=== PATIENT | female | born 2000 | race Caucasian/White ===

== ENCOUNTER 2021-10-08 09:33 | Emergency (ER) | payer MEDICAID, SELFPAY ==
--- NOTE | ~2021-10-08 | CT_ITS ---
EXAMINATION: CT HEAD WITHOUT CONTRAST CLINICAL INFORMATION: Head injury, persistent dizziness, headache COMPARISON: None TECHNIQUE: Contiguous axial imaging was performed from the skull base to vertex without intravenous administration of contrast. This CT examination was performed using dose optimization techniques as appropriate, variously including the following: *Automated exposure control *Adjustment of mA and/or kV according to patient size (this includes techniques or standardized protocols for targeted exams where dose is matched to indication/reason for exam; i.e. extremities or head) *Use of iterative reconstruction technique DLP: 615 mGy-cm FINDINGS: There is no evidence of acute intracranial hemorrhage or territorial infarction. No abnormal mass effect or midline shift is seen. Han to white matter differentiation is well preserved. No extra-axial fluid collections are identified. The ventricles are normal in size. There is no abnormal attenuation within the brain parenchyma. The osseous structures and soft tissues are normal. The mastoid air cells and visualized portions of the paranasal sinuses are well aerated. CT/CT head/brain wo con IMPRESSION: No CT evidence of acute intracranial hemorrhage or edematous territorial infarction.
[2021-10-08 09:49] VITALS: BP 124/71; PULSE 84; RESP 18; TEMP 36.8; O2SAT 99; BMI 23.0
[2021-10-08 16:26] VITALS: BP 122/75; PULSE 80; RESP 16; O2SAT 100
--- NOTE | 2021-10-08 16:33 | ECG_ITS ---
Test Reason : SYNCOPE Blood Pressure : / mmHG Vent. Rate : 077 BPM Atrial Rate : 077 BPM P-R Int : 152 ms QRS Dur : 078 ms QT Int : 336 ms P-R-T Axes : -23 054 038 degrees QTc Int : 380 ms Normal sinus rhythm Normal ECG When compared with ECG of 25-MAY-2019 16:20, No significant change was found Referred By: Eva Boucher Electronically Signed By:KEISHA BASHIR
--- NOTE | 2021-10-08 16:34 | ED.SYNCOPE ---
HPI - Syncope General Chief Complaint: Syncope <Eva Darbyyi Boucher CNP - Last Filed: 10/09/21 00:57> Stated Complaint: head blood work <Eva Boucher CNP - Last Filed: 10/09/21 00:57> Time Seen by Provider: 10/08/21 16:24 <Eva Boucher CNP - Last Filed: 10/09/21 00:57> Source: patient <Eva Pastor DARRELL Boucher - Last Filed: 10/09/21 00:57> Mode of arrival: ambulatory <Eva Burnsyi Boucher CNP - Last Filed: 10/09/21 00:57> Limitations: no limitations <Eva Burnsyi Boucher CNP - Last Filed: 10/09/21 00:57> History of Present Illness HPI narrative: Patient presents to the emergency department for evaluation after syncopal episode occurring 6 days ago while in the shower. She reports that she was found by a friend. It is unclear exactly how long she was down. She did not seek evaluation after this occurred. She reports that since this episode she has been experiencing intermittent left posterior headache, that typically last for a few minutes at a time, and self resolves. She states that it is occurring frequently during the day and is associated with dizziness and blurred vision. She reports the headache to be worse at night making it difficult for her to sleep. She contacted her primary care provider who advised her to come to the emergency department for further evaluation. She does report a remote history of syncopal episodes in the past, it is unclear exactly when this was, she states that ?my heart was checked and everything was fine?. Denies any additional syncopal episodes or falls/head injury, neck pain, nausea, vomiting, abdominal pain, chest pain, palpitations, shortness of breath, difficulty breathing. <Eva Boucher CNP - Last Filed: 10/09/21 00:57> MD complaint: loss of consciousness <Eva Boucher CNP - Last Filed: 10/09/21 00:57> Onset (ago): day(s) <DARRELL Cruz Last Filed: 10/09/21 00:57> Related Data Allergies/Adverse Reactions: Allergies Allergy/AdvReac Type Severity Reaction Status Date / Time No Known Allergies Allergy Unverified 02/08/20 18:23 <Eva Boucher CNP - Last Filed: 10/09/21 00:57> Review of Systems Review of Systems: Constitutional: No weight loss. No fever. No chills. No weakness. No fatigue. Eye: No swelling. No redness. ENT: No sore throat. No rhinorrhea. No nasal congestion. No sore throat. No difficulty swallowing. Skin: No rash. No itching. Cardiovascular: No chest pain. No chest pressure. No palpitations. No pedal edema. Respiratory: No shortness of breath. No cough. No sputum production. Gastrointestinal: No nausea. No vomiting. No diarrhea. No abdominal pain. Genitourinary: No burning micturition. No urinary frequency. No incontinence. Neurologic: Positive headache. Positive dizziness. Positive syncope. No unilateral weakness. No ataxia. No numbness. No tingling. No change in bowel or bladder control. Musculoskeletal: No muscle pain. No back pain. No joint pain. No stiffness. Hematologic: No bleeding. No bruising. Lymphatics: No enlarged lymph nodes. Endocrine: No polyuria. No polydipsia. <Eva Boucher CNP - Last Filed: 10/09/21 00:57> Yes all other systems are reviewed and are negative <Eva Boucher CNP - Last Filed: 10/09/21 00:57> PMF Past Medical History Attestation statement: The following information was validated with the patient. <Eva Boucher CNP - Last Filed: 10/09/21 00:57> Source: old records reviewed <Eva Boucher CNP - Last Filed: 10/09/21 00:57> Social History Social History: Social History Advance Directives: No Advance Directives Information Provided: No <Eva Boucher CNP - Last Filed: 10/09/21 00:57> Physical Exam Vital Signs: Vital Signs: Last Vital Signs Temp 98.3 F 10/08/21 09:49 Pulse 75 10/08/21 18:58 Resp 16 10/08/21 18:58 BP 123/71 10/08/21 18:58 Pulse Ox 100 10/08/21 18:58 BMI result Body Mass Index 23.0 Vital signs have been reviewed as normal and appeared to be correct. Blood pressure normal.? Heart rate normal.? Respiration rate normal. Temperature normal.? Oxygen saturation normal. <Eva Boucher CNP - Last Filed: 10/09/21 00:57> Appearance: Alert.?Oriented to person, place and time. No acute distress.?Normal affect. Eyes: Pupils equal, round and reactive to light.? EOMI. No nystagmus. ENT: Pharynx normal.??TM normal bilaterally Neck: Normal inspection.? Neck supple.??No midline cervical spine tenderness, step-offs, deformities CVS: Heart sounds normal. Normal heart rate and rhythm.? Pulses normal.?? Respiratory: No respiratory distress.? Lung sounds clear to auscultation bilaterally?? Abdomen: Soft and non-tender. ?? Skin: Skin warm and dry.? Normal skin color.? Extremities: No lower extremity edema.? Neuro: Moves all extremities spontaneously. Sensation intact bilaterally. CN II-XII intact. No focal neuro deficits. Ambulates with normal steady gait. <Eva Boucher CNP - Last Filed: 10/09/21 00:57> Course Course Course Narrative: Patient is a 20-year-old female no significant past medical history presenting to emergency department for intermittent headaches and dizziness since the syncopal episode occurring 6 days ago. At that time she was in the shower when she syncopized, denies a shower being excessively hot. Before this syncopal episode she reports feeling otherwise well. Since event dizziness has been sudden in onset and very episodic, lasting only minutes at a time. No neurological deficits. No nystagmus. Ambulatory with steady gait. Will obtain CBC, CMP, urinalysis, and CT of the head to exclude ICH/SAH. <Eva Boucher CNP - Last Filed: 10/09/21 00:57> Reevaluation(s) Reevaluation #1: CBC and CMP are overall unremarkable. Head CT is unremarkable for acute findings. Urinalysis reveals 2+ leuk esterase, but not currently experiencing any urinary symptoms, at this time would not treat with antibiotics, discussed this with patient who agrees. Patient advised to use Tylenol or ibuprofen as needed for headaches, advised to follow-up with primary care provider should she continue to experience headaches or brief intermittent dizziness. Discussed reasons return back to the emergency department. Questions were answered for patient discharged home in stable condition. <Eva BoucherDARRELL - Last Filed: 10/09/21 00:57> Time: 18:30 <Eva LunaDARRELL zuñiga - Last Filed: 10/09/21 00:57> MDM - Syncope Medical Records Attestation: I reviewed the patient's medical records. <Eva LunaDARRELL zuñiga - Last Filed: 10/09/21 00:57> Lab Data Attestation: I reviewed the patient's lab results. <Eva Pastor DARRELL Boucher - Last Filed: 10/09/21 00:57> Result diagrams: : 10/08/21 17:05 10/08/21 17:05 <Eva Pastor DARRELL Boucher - Last Filed: 10/09/21 00:57> Labs: Lab Results 10/08/21 10/08/21 10/08/21 Range/Units 17:05 17:05 17:05 WBC 6.7 (4.8-10.8) X10*3/uL RBC 4.54 (4.20-5.50) X10*6/uL Hgb 13.5 (12.0-16.0) g/dl Hct 40.7 (37.0-47.0) % MCV 89.6 (80.0-98.0) fL MCH 29.7 (27.0-33.0) pg MCHC 33.2 (31.0-35.0) g/dl RDW 12.5 (11.0-16.0) % Plt Count 158 L (160-400) X10*3/uL MPV 12.4 H (9.4-12.3) fL Immature Gran % (Auto) 0.7 H (0.0-0.4) % Neut % (Auto) 53.6 (45-73) % Lymph % (Auto) 37.8 (20-40) % [place] % (Auto) 5.9 (2-11) % Eos % (Auto) 1.6 (0-4) % Baso % (Auto) 0.4 (0-2) % Lymph # (Auto) 2.6 (1.2-4.9) X10*3/uL [place] # (Auto) 0.4 (0.1-1.2) X10*3/uL Eos # (Auto) 0.1 (0.0-0.4) X10*3/uL Baso # (Auto) 0.0 (0.0-0.2) X10*3/uL Abs Immat Gran (auto) 0.05 H (0.00-0.03) X10*3/uL Absolute Neuts (auto) 3.6 (2.0-8.3) x10*3/uL Absolute Nucleated RBC 0.000 (0.0-0.012) X10*3/uL Nucleated RBC % (auto) 0.0 (0.0-0.2) /100WBC Smear Tech's Comments VERIFIED Sodium 140 (135-145) mmol/L Potassium 4.0 (3.3-5.1) mmol/L Chloride 107 (96-108) mmol/L Carbon Dioxide 25 (22-29) mmol/L Anion Gap 12 (12-20) BUN 8 L (9-16) mg/dL Creatinine 0.68 (0.5-1.4) mg/dL Estim Creat Clear Calc 100.4 Estimated GFR > 60 Random Glucose 86 (60-115) mg/dL Calcium 10.2 (8.4-10.2) mg/dL Magnesium 2.3 (1.6-2.6) mg/dL Total Bilirubin 0.4 (0.0-1.0) mg/dL AST 16 (5-31) U/L ALT 13 (0-31) U/L Alkaline Phosphatase 87 (39-117) U/L Troponin I High Sens < 3.5 (<3.5-17.0) ng/L Total Protein 7.9 (6.5-8.0) g/dL Albumin 5.1 H (3.5-5.0) g/dL Urine Color Urine Appearance Urine pH (5.0-8.0) Ur Specific [place] (1.005-1.025) Urine Protein (NEG-TRACE) MG/DL Urine Glucose (UA) (NEG) MG/DL Urine Ketones (NEG) MG/DL Urine Blood (NEG) Urine Nitrite (NEG) Ur Leukocyte Esterase (NEG) Urine RBC (0) /HPF Urine WBC (0-4) /HPF Ur Squamous Epith Cells /LPF Urine Bacteria /LPF Urine Test (NEGATIVE) 10/08/21 10/08/21 Range/Units 17:05 17:05 WBC (4.8-10.8) X10*3/uL RBC (4.20-5.50) X10*6/uL Hgb (12.0-16.0) g/dl Hct (37.0-47.0) % MCV (80.0-98.0) fL MCH (27.0-33.0) pg MCHC (31.0-35.0) g/dl RDW (11.0-16.0) % Plt Count (160-400) X10*3/uL MPV (9.4-12.3) fL Immature Gran % (Auto) (0.0-0.4) % Neut % (Auto) (45-73) % Lymph % (Auto) (20-40) % [place] % (Auto) (2-11) % Eos % (Auto) (0-4) % Baso % (Auto) (0-2) % Lymph # (Auto) (1.2-4.9) X10*3/uL [place] # (Auto) (0.1-1.2) X10*3/uL Eos # (Auto) (0.0-0.4) X10*3/uL Baso # (Auto) (0.0-0.2) X10*3/uL Abs Immat Gran (auto) (0.00-0.03) X10*3/uL Absolute Neuts (auto) (2.0-8.3) x10*3/uL Absolute Nucleated RBC (0.0-0.012) X10*3/uL Nucleated RBC % (auto) (0.0-0.2) /100WBC Smear Tech's Comments Sodium (135-145) mmol/L Potassium (3.3-5.1) mmol/L Chloride (96-108) mmol/L Carbon Dioxide (22-29) mmol/L Anion Gap (12-20) BUN (9-16) mg/dL Creatinine (0.5-1.4) mg/dL Estim Creat Clear Calc Estimated GFR Random Glucose (60-115) mg/dL Calcium (8.4-10.2) mg/dL Magnesium (1.6-2.6) mg/dL Total Bilirubin (0.0-1.0) mg/dL AST (5-31) U/L ALT (0-31) U/L Alkaline Phosphatase (39-117) U/L Troponin I High Sens (<3.5-17.0) ng/L Total Protein (6.5-8.0) g/dL Albumin (3.5-5.0) g/dL Urine Color YELLOW Urine Appearance CLEAR Urine pH 6.5 (5.0-8.0) Ur Specific [place] 1.015 (1.005-1.025) Urine Protein NEG (NEG-TRACE) MG/DL Urine Glucose (UA) NEG (NEG) MG/DL Urine Ketones NEG (NEG) MG/DL Urine Blood NEG (NEG) Urine Nitrite NEG (NEG) Ur Leukocyte Esterase 2+ H (NEG) Urine RBC 0 (0) /HPF Urine WBC 0 (0-4) /HPF Ur Squamous Epith Cells 1+ /LPF Urine Bacteria 1+ /LPF Urine Test NEGATIVE (NEGATIVE) <Eva Boucher CNP - Last Filed: 10/09/21 00:57> Imaging Data CT scan - head: Radiologist's impression: CT/CT head/brain wo con IMPRESSION: No CT evidence of acute intracranial hemorrhage or edematous territorial infarction. <Eva Boucher CNP - Last Filed: 10/09/21 00:57> ECG Data Attestation: I personally reviewed and interpreted this ECG as follows: <Eva Boucher CNP - Last Filed: 10/09/21 00:57> ECG interpretation date: 10/08/21 <Eva Boucher CNP - Last Filed: 10/09/21 00:57> ECG interpretation time: 18:46 <Eva Boucher CNP - Last Filed: 10/09/21 00:57> Prior ECG tracings: available for review <Eva Boucher CNP - Last Filed: 10/09/21 00:57> Interpretation: Rate: 77 Rhythm:? Normal sinus rhythm [place]:? Normal Normal P waves.? Normal TORI.?? Normal QRS complex.?? ST T wave :??No ST elevation, no ST depression, no T-wave inversion qTC: 380 prior studies:? May 2019 The study has been interpreted contemporaneously by me. <Eva Boucher CNP - Last Filed: 10/09/21 00:57> Discharge Plan Discharge Clinical Impression: Headache <Eva Boucher CNP - Last Filed: 10/09/21 00:57> Patient Disposition: Home, Self-Care <Eva Boucher CNP - Last Filed: 10/09/21 00:57> Instructions: Acute Headache (ED) <Eva Bouhcer CNP - Last Filed: 10/09/21 00:57> Additional Instructions: Your blood work today was normal, the CT imaging of your head was normal. The EKG looking at your heart was normal. Regarding your headache, You can take ibuprofen 200 mg, 3 tablets (600mg) every 6-8 hours as needed for pain, in addition to Tylenol 500 mg, 2 tablets (1,000mg) every 4-6 hours as needed for pain, but not to exceed 3 doses daily (3,000mg). Please follow-up with your primary care provider within 1-3 days for further evaluation of persistent headaches. You may return to the emergency department with any new or worsening symptoms or concerns this might include additional syncopal episodes, confusion, persistent dizziness/lightheadedness, nausea with persistent vomiting. <Eva Boucher CNP - Last Filed: 10/09/21 00:57> Referrals: Charlene Amaya PA [Primary Care Provider] - 3 days <Eva Boucher CNP - Last Filed: 10/09/21 00:57> Interventions: ED Discharge Assessment Last Done: 10/08/21 19:01 <Eva Boucher CNP - Last Filed: 10/09/21 00:57> Discharge Date/Time: 10/08/21 19:02 <vEa Boucher CNP - Last Filed: 10/09/21 00:57>
[2021-10-08 17:11] LABS: Eosinophils Absolute Auto 0.1 X10*3/uL (0.0-0.4); Eosinophils Percent Auto 1.6 % (0-4); PLT CLUMP 1; Red Cell Distribution Width 12.5 % (11.0-16.0); SCAN SMEAR FLAG 1
[2021-10-08 17:13] LABS: Basophils Percent Auto 0.4 % (0-2); Hematocrit 40.7 % (37.0-47.0); Hemoglobin 13.5 g/dl (12.0-16.0); Imm Gran Abs Auto 0.05 X10*3/uL (0.00-0.03); Imm Gran Pct Auto 0.7 % (0.0-0.4); Lymphocytes Absolute Auto 2.6 X10*3/uL (1.2-4.9); Lymphocytes Percent Auto 37.8 % (20-40); MANUAL DIFF FLAG SCAN; Mean Corpuscular HGB Conc 33.2 g/dl (31.0-35.0); Mean Corpuscular Hemoglobin 29.7 pg (27.0-33.0); Mean Corpuscular Volume 89.6 fL (80.0-98.0); Mean Platelet Volume 12.4 fL (9.4-12.3); Monocytes Absolute Auto 0.4 X10*3/uL (0.1-1.2); Monocytes Percent Auto 5.9 % (2-11); Neutrophils Absolute Auto 3.6 x10*3/uL (2.0-8.3); Neutrophils Percent Auto 53.6 % (45-73); Red Blood Count 4.54 X10*6/uL (4.20-5.50)
[2021-10-08 17:26] LABS: Appearance Urine CLEAR; Color Urine YELLOW; Glucose Urine UA NEG (NEG); Leukocyte Esterase Urine 2+ (NEG); Nitrite Urine NEG (NEG); PH 6.5 (5.0-8.0); Specific Gravity - Urine 1.015 (1.005-1.025); UACC Culture Trigger YES; Urine Blood NEG (NEG); Urine Ketones NEG (NEG); Urine Protein NEG (NEG-TRACE)
[2021-10-08 17:28] LABS: UPreg QC Valid YES; Urine Pregnancy NEGATIVE (NEGATIVE)
[2021-10-08 17:31] LABS: Troponin-I High Sensitivity < 3.5 ng/L (<3.5-17.0); White Blood Count 6.7 X10*3/uL (4.8-10.8)
[2021-10-08 17:32] LABS: Alanine Aminotransferase 13 U/L (0-31); Albumin Level 5.1 g/dL (3.5-5.0); Alkaline Phosphatase 87 U/L (39-117); Anion Gap 12 (12-20); Aspartate Amino Transferase 16 U/L (5-31); Bilirubin Total 0.4 mg/dL (0.0-1.0); Blood Urea Nitrogen 8 mg/dL (9-16); Calcium 10.2 mg/dL (8.4-10.2); Carbon Dioxide 25 mmol/L (22-29); Chloride 107 mmol/L (96-108); Creatinine Clr Calc Pharmacy 100.4; Estimated Glomerular Filt Rate > 60; Glucose Random 86 mg/dL (60-115); Magnesium 2.3 mg/dL (1.6-2.6); Sodium 140 mmol/L (135-145); Total Protein 7.9 g/dL (6.5-8.0)
[2021-10-08 17:34] LABS: Bacteria Urine 1+ /LPF; RBC Urine 0 /HPF (0); Squamous Epithelial Cell Urine 1+ /LPF; WBC Urine 0 /HPF (0-4)
[2021-10-08 17:44] LABS: Platelet Count 158 X10*3/uL (160-400); SLIDE REVIEW VERIFIED
[2021-10-08 18:58] VITALS: BP 123/71; PULSE 75; RESP 16; O2SAT 100
== END 2021-10-08 19:02 | disposition home or self-care (01) ==
PROVIDERS: Nurse Practitioner Family; Emergency Provider Internal Medicine; PCP Physician Assistant
DX: R51.9 Headache, unspecified (principal)
CPT/HCPCS: 36415; 70450; 80053; 81001; 81025; 83735; 84484; 85025; 87086; 93005; 99283; 99284

== ENCOUNTER 2021-12-16 10:29 | Outpatient (REF) | payer MEDICAID, SELFPAY ==
[2021-12-16 10:56] LABS: COVID-19 Test Positive (Negative)
== END 2021-12-16 10:30 | disposition home or self-care (01) ==
LOC: HO.LAB 10:29
PROVIDERS: Visit Provider Internal Medicine
DX: Z20.822 Contact with and (suspected) exposure to COVID-19 (principal)
CPT/HCPCS: 87635; C9803

== ENCOUNTER 2022-01-27 15:18 | Emergency (ER) | payer MEDICAID, SELFPAY ==
[2022-01-27 15:42] VITALS: BP 133/61; PULSE 97; RESP 16; TEMP 36.4; O2SAT 98; BMI 25.7
[2022-01-27 20:01] LABS: MANUAL DIFF FLAG NO
[2022-01-27 20:20] LABS: Basophils Percent Auto 0.3 % (0-2); Eosinophils Absolute Auto 0.1 X10*3/uL (0.0-0.4); Eosinophils Percent Auto 0.7 % (0-4); Hematocrit 36.7 % (37.0-47.0); Hemoglobin 12.4 g/dl (12.0-16.0); Imm Gran Abs Auto 0.04 X10*3/uL (0.00-0.03); Imm Gran Pct Auto 0.4 % (0.0-0.4); Lymphocytes Absolute Auto 2.2 X10*3/uL (1.2-4.9); Lymphocytes Percent Auto 23.8 % (20-40); Mean Corpuscular HGB Conc 33.8 g/dl (31.0-35.0); Mean Corpuscular Hemoglobin 29.7 pg (27.0-33.0); Mean Platelet Volume 12.3 fL (9.4-12.3); Monocytes Absolute Auto 0.5 X10*3/uL (0.1-1.2); Monocytes Percent Auto 5.7 % (2-11); Neutrophils Absolute Auto 6.3 x10*3/uL (2.0-8.3); Neutrophils Percent Auto 69.1 % (45-73); Platelet Count 186 X10*3/uL (160-400); Red Blood Count 4.17 X10*6/uL (4.20-5.50); Red Cell Distribution Width 12.5 % (11.0-16.0); White Blood Count 9.1 X10*3/uL (4.8-10.8)
[2022-01-27 20:21] LABS: Alanine Aminotransferase 15 U/L (0-31); Albumin Level 4.7 g/dL (3.5-5.0); Alkaline Phosphatase 83 U/L (39-117); Anion Gap 17 (12-20); Aspartate Amino Transferase 19 U/L (5-31); Bilirubin Total 0.2 mg/dL (0.0-1.0); Blood Urea Nitrogen 12 mg/dL (9-16); Calcium 9.3 mg/dL (8.4-10.2); Carbon Dioxide 22 mmol/L (22-29); Chloride 107 mmol/L (96-108); Creatinine Clr Calc Pharmacy 100.6; Estimated Glomerular Filt Rate > 60; Glucose Random 102 mg/dL (60-115); Potassium 3.9 mmol/L (3.3-5.1); Sodium 142 mmol/L (135-145); Total Protein 7.2 g/dL (6.5-8.0)
[2022-01-27 20:27] LABS: HCG Quantitative < 2 mIU/mL
[2022-01-27 20:32] LABS: Appearance Urine Clear; Color Urine Yellow; Glucose Urine UA Negative (Negative); Leukocyte Esterase Urine Small (1+) (Negative); Nitrite Urine Negative (Negative); PH 6.5 (5.0-9.0); Urine Blood Moderate (2+) (Negative); Urine Ketones Negative (Negative); Urine Protein Negative (Neg-Trace)
[2022-01-27 20:52] LABS: Bacteria Urine None Seen (None Seen); Hyaline Casts Urine 0-2 /LPF (0-2); RBC Urine 0-2 /HPF (0-2); Squamous Epithelial Cell Urine 0-2 /HPF (0-2); UACC Culture Trigger YES
--- NOTE | 2022-01-27 21:56 | ED_ITS ---
HPI - Female Genitourinary General Chief complaint: Vaginal Bleeding Stated complaint: possible miscarrige Time Seen by Provider: 01/27/22 18:55 Source: patient Mode of arrival: ambulatory Limitations: no limitations History of Present Illness HPI Narrative: 21-year-old female presents to the ER for evaluation of new onset heavy vaginal bleeding and pelvic cramping that started today. who reports last week she did a home test that was positive. She has irregular periods in states her last period was sometime in November. She denies history of heavy periods. She is worried she is having a miscarriage. She reports cramping lower abdominal pain that comes and goes and bleeding heavily from her vagina with clots. No vaginal discharge. No concern for STI. No fever or chills. No vomiting but she did have some nausea today. She has never been to an OBGYN before. MD elicited complaint: vaginal bleeding Onset (ago): hour(s) Location of symptoms: vaginal Severity: severe Female Urogenital Radiation: Non-Radiating Severity scale (1-10): 8 Quality of pain: cramping Consistency: intermittent Vaginal discharge: none Vaginal bleeding: dark red and clots Exacerbating factors: none Relieving factors: none Associated symptoms: denies other symptoms Treatment prior to arrival: none Sexual activity: Yes Possible : at home test positive Related Data Previous Rx's Medication Instructions Recorded ibuprofen 600 mg tablet 600 mg PO Q8H PRN pain #14 tabs 01/27/22 Allergies Allergy/AdvReac Type Severity Reaction Status Date / Time No Known Allergies Allergy Verified 01/27/22 15:42 Review of Systems Review of Systems: Constitutional: No Fever, No Chills ENT/Mouth: No sore throat, No Rhinorrhea, No Swallowing Difficulty Cardiovascular: No Chest Pain, No SOB Respiratory: No Cough, No Sputum Gastrointestinal: No Nausea, No Vomiting, No Diarrhea, + abdominal Pain, No Hematochezia, No Melena Genitourinary: No Dysuria, No Urinary Frequency, No Hematuria, +Vaginal bleeding Musculoskeletal: No joint pain, No Myalgias Skin: No Skin Lesions, No rash Neuro: No Weakness, No Numbness, No Dizziness, No Headache Psych: +Anxiety/Panic, No Depression Heme/Lymph: No Bruising, No Lymphadenopathy PMFSH Social History Social History (Reviewed 10/08/21 @ 17:27 by VLADIMIR Cruz Advance Directives: No Advance Directives Information Provided: No Physical Exam Vital Signs: Vital Signs: Last Vital Signs Temp 97.6 F 01/27/22 15:42 Pulse 97 01/27/22 15:42 Resp 16 01/27/22 15:42 BP 133/61 01/27/22 15:42 Pulse Ox 98 01/27/22 15:42 O2 Del Method 01/27/22 15:42 BMI result Body Mass Index 25.7 Appearance: Alert. Oriented X3. No acute distress. HEENT: normal external inspection Neck: Normal inspection. Neck supple. CVS: Normal heart rate and rhythm. Pulses normal. Respiratory: No respiratory distress. Breath sounds normal. Abdomen: Soft and nontender. +BS x4. Pelvic deferred per patient request Skin: Skin warm and dry. Normal skin color. Normal skin turgor. No rashes. Extremities: No lower extremity edema. Neuro: Oriented X 3. Nonfocal Course Course Course Narrative: 21-year-old female presents to the ER for evaluation of heavy vaginal bleeding. She has a history of irregular menses. She reports a home test that was positive last week. Lab work done and triaged revealing an H&H of 12.4/36.7. Her hCG is less than 2. She is declining pelvic exam. Her pain is most likely due to her menses. Will have her follow-up with THERMODYNAMICIST for further management. [facility] - Female Genitourinary Lab Data Result diagrams: 01/27/22 19:51 01/27/22 19:51 Labs: Lab Results 01/27/22 01/27/22 01/27/22 Range/Units 19:51 19:51 19:51 WBC 9.1 (4.8-10.8) X10*3/uL RBC 4.17 L (4.20-5.50) X10*6/uL Hgb 12.4 (12.0-16.0) g/dl Hct 36.7 L (37.0-47.0) % MCV 88.0 (80.0-98.0) fL MCH 29.7 (27.0-33.0) pg MCHC 33.8 (31.0-35.0) g/dl RDW 12.5 (11.0-16.0) % Plt Count 186 (160-400) X10*3/uL MPV 12.3 (9.4-12.3) fL Immature Gran % (Auto) 0.4 (0.0-0.4) % Neut % (Auto) 69.1 (45-73) % Lymph % (Auto) 23.8 (20-40) % [place] % (Auto) 5.7 (2-11) % Eos % (Auto) 0.7 (0-4) % Baso % (Auto) 0.3 (0-2) % Lymph # (Auto) 2.2 (1.2-4.9) X10*3/uL [place] # (Auto) 0.5 (0.1-1.2) X10*3/uL Eos # (Auto) 0.1 (0.0-0.4) X10*3/uL Baso # (Auto) 0.0 (0.0-0.2) X10*3/uL Abs Immat Gran (auto) 0.04 H (0.00-0.03) X10*3/uL Absolute Neuts (auto) 6.3 (2.0-8.3) x10*3/uL Absolute Nucleated RBC 0.000 (0.0-0.012) X10*3/uL Nucleated RBC % (auto) 0.0 (0.0-0.2) /100WBC Sodium 142 (135-145) mmol/L Potassium 3.9 (3.3-5.1) mmol/L Chloride 107 (96-108) mmol/L Carbon Dioxide 22 (22-29) mmol/L Anion Gap 17 (12-20) BUN 12 (9-16) mg/dL Creatinine 0.72 (0.5-1.4) mg/dL Estim Creat Clear Calc 100.6 Estimated GFR > 60 Random Glucose 102 (60-115) mg/dL Calcium 9.3 D (8.4-10.2) mg/dL Total Bilirubin 0.2 (0.0-1.0) mg/dL AST 19 (5-31) U/L ALT 15 (0-31) U/L Alkaline Phosphatase 83 (39-117) U/L Total Protein 7.2 (6.5-8.0) g/dL Albumin 4.7 (3.5-5.0) g/dL Beta HCG, Quant < 2 mIU/mL Urine Color Urine Appearance Urine pH (5.0-9.0) Ur Specific [place] (1.005-1.025) Urine Protein (Neg-Trace) mg/dL Urine Glucose (UA) (Negative) mg/dL Urine Ketones (Negative) mg/dL Urine Blood (Negative) Urine Nitrite (Negative) Ur Leukocyte Esterase (Negative) Urine RBC (0-2) /HPF Urine WBC (0-5) /HPF Ur Squamous Epith Cells (0-2) /HPF Urine Bacteria (None Seen) Hyaline Casts (0-2) /LPF Urine Test (NEGATIVE) 01/27/22 01/27/22 Range/Units 20:19 20:19 WBC (4.8-10.8) X10*3/uL RBC (4.20-5.50) X10*6/uL Hgb (12.0-16.0) g/dl Hct (37.0-47.0) % MCV (80.0-98.0) fL MCH (27.0-33.0) pg MCHC (31.0-35.0) g/dl RDW (11.0-16.0) % Plt Count (160-400) X10*3/uL MPV (9.4-12.3) fL Immature Gran % (Auto) (0.0-0.4) % Neut % (Auto) (45-73) % Lymph % (Auto) (20-40) % [place] % (Auto) (2-11) % Eos % (Auto) (0-4) % Baso % (Auto) (0-2) % Lymph # (Auto) (1.2-4.9) X10*3/uL [place] # (Auto) (0.1-1.2) X10*3/uL Eos # (Auto) (0.0-0.4) X10*3/uL Baso # (Auto) (0.0-0.2) X10*3/uL Abs Immat Gran (auto) (0.00-0.03) X10*3/uL Absolute Neuts (auto) (2.0-8.3) x10*3/uL Absolute Nucleated RBC (0.0-0.012) X10*3/uL Nucleated RBC % (auto) (0.0-0.2) /100WBC Sodium (135-145) mmol/L Potassium (3.3-5.1) mmol/L Chloride (96-108) mmol/L Carbon Dioxide (22-29) mmol/L Anion Gap (12-20) BUN (9-16) mg/dL Creatinine (0.5-1.4) mg/dL Estim Creat Clear Calc Estimated GFR Random Glucose (60-115) mg/dL Calcium (8.4-10.2) mg/dL Total Bilirubin (0.0-1.0) mg/dL AST (5-31) U/L ALT (0-31) U/L Alkaline Phosphatase (39-117) U/L Total Protein (6.5-8.0) g/dL Albumin (3.5-5.0) g/dL Beta HCG, Quant mIU/mL Urine Color Yellow Urine Appearance Clear Urine pH 6.5 (5.0-9.0) Ur Specific [place] 1.020 (1.005-1.025) Urine Protein Negative (Neg-Trace) mg/dL Urine Glucose (UA) Negative (Negative) mg/dL Urine Ketones Negative (Negative) mg/dL Urine Blood Moderate (2+) H (Negative) Urine Nitrite Negative (Negative) Ur Leukocyte Esterase Small (1+) H (Negative) Urine RBC 0-2 (0-2) /HPF Urine WBC 6-10 H (0-5) /HPF Ur Squamous Epith Cells 0-2 (0-2) /HPF Urine Bacteria None Seen (None Seen) Hyaline Casts 0-2 (0-2) /LPF Urine Test NEGATIVE (NEGATIVE) Critical Care Time Critical Care Time Critical Care Time: No Discharge Plan Discharge Clinical Impression: Dysfunctional uterine bleeding Patient Disposition: Home, Self-Care Instructions: Dysfunctional Uterine Bleeding (ED) Additional Instructions: Your lab work today was unremarkable. Your hormone is negative. Recommend following up with THERMODYNAMICIST - name and number below Take the prescribed ibuprofen as directed If you develop new or worsening symptoms call 911 or come back to the ER for further evaluation. Prescriptions: New ibuprofen 600 mg tablet 600 mg PO Q8H PRN (Reason: pain) Qty: 14 0RF Referrals: Kilo Lynch MD [Physician] - (DUB)
[2022-01-27 22:09] LABS: UPreg QC Valid YES; Urine Pregnancy NEGATIVE (NEGATIVE)
[2022-01-27] MEDS: Ibuprofen 600 MG TABLET PO (22:11)
== END 2022-01-27 22:32 | disposition home or self-care (01) ==
PROVIDERS: Physician Assistant; Emergency Provider Internal Medicine; PCP Family Medicine
DX: N92.0 Excessive and frequent menstruation with regular cycle (principal); N93.8 Other specified abnormal uterine and vaginal bleeding; R25.2 Cramp and spasm; Z79.899 Other long term (current) drug therapy
CPT/HCPCS: 36415; 80053; 81001; 81025; 84702; 85025; 87086; 99283

== ENCOUNTER 2022-06-24 13:36 | Outpatient (REF) | payer MEDICAID, SELFPAY ==
--- NOTE | ~2022-06-24 | US_ITS ---
EXAMINATION: US OBSTETRICAL ULTRASOUND CLINICAL INFORMATION: Bleeding in early . COMPARISON: None. LMP: 05/10/2022. Gestational age by maternal dates is 6 weeks and 3 days. Estimated date of delivery by maternal dates is 02/14/2023. TECHNIQUE: Ultrasound of the maternal pelvis is performed using transabdominal and transvaginal transducers. Transvaginal imaging is performed due to inadequate visualization transabdominally. M-mode Doppler is also performed. FINDINGS: There is a single intrauterine gestational sac, without visible yolk sac, embryo/fetus, or cardiac activity. There are 2 small subchorionic hemorrhages, more on the left measuring 0.2 x 1.1 x 0.5 cm and a further on the right measuring 0.4 x 0.5 x 0.8 cm. Mean sac diameter: 0.35 cm (4 weeks and 6 days +/- 4 days). MATERNAL ADNEXA: The right maternal ovary measures 2.8 x 2.0 x 2.5 cm. The left maternal ovary measures 3.6 x 1.9 x 2.2 cm. The left ovary contains a 2.0 x 1.3 x 1.4 cm corpus luteum cyst. There is no significant maternal adnexal mass. No maternal pelvic ascites. US/US OB pelvic and transvaginal IMPRESSION: 1. Single intrauterine gestational sac, with ultrasound gestational age of 4 weeks and 6 days +/- 4 days. No pole presently noted, likely related to early gestational age. Recommend short-term follow-up pelvic ultrasound for pole assessment and more accurate dating. Serial serum beta hCG levels may be helpful. 2. 2 small subchorionic hemorrhages are noted. A preliminary report was provided by the [facility] on 06/25/2022.
== END 2022-06-24 13:37 | disposition home or self-care (01) ==
LOC: HO.US 13:36
PROVIDERS: PCP Family Medicine; Visit Provider Advanced Practice Midwife
DX: Z34.91 Encounter for supervision of normal pregnancy, unspecified, first trimester (principal); Z3A.01 Less than 8 weeks gestation of pregnancy
CPT/HCPCS: 76801; 76817

== ENCOUNTER 2022-07-02 10:55 | Outpatient (REF) | payer MEDICAID, SELFPAY ==
--- NOTE | ~2022-07-02 | US_ITS ---
EXAMINATION: US OBSTETRICAL ULTRASOUND CLINICAL INFORMATION: Follow-up early IUP COMPARISON: Previous exam 06/24/2022. LMP: Unknown. Gestational age by maternal dates is . Estimated date of delivery by maternal dates is . TECHNIQUE: Transabdominal and transvaginal first trimester OB ultrasound. Transvaginal exam was performed for better visualization of the gestational sac. FINDINGS: The uterus measures 8.1 x 4.4 x 5.4 cm in dimension. There is an intrauterine gestational sac and yolk sac. No pole is seen. Mean sac diameter measures 1.5 cm suggesting gestational age 6 weeks 3 days. MATERNAL ADNEXA: The right maternal ovary measures 2.9 x 1.9 x 2.5 cm. The left maternal ovary measures 3.1 x 2.1 x 2.2 cm. There is no significant maternal adnexal mass. No maternal pelvic ascites. US/US OB <= 14 weeks fetus IMPRESSION: Intrauterine gestational sac and yolk sac. No pole seen. Mean sac diameter suggests gestational age 6 weeks 3 days.
--- NOTE | ~2022-07-02 | US_ITS ---
EXAMINATION: US OBSTETRICAL ULTRASOUND CLINICAL INFORMATION: Follow-up early IUP COMPARISON: Previous exam 06/24/2022. LMP: Unknown. Gestational age by maternal dates is . Estimated date of delivery by maternal dates is . TECHNIQUE: Transabdominal and transvaginal first trimester OB ultrasound. Transvaginal exam was performed for better visualization of the gestational sac. FINDINGS: The uterus measures 8.1 x 4.4 x 5.4 cm in dimension. There is an intrauterine gestational sac and yolk sac. No pole is seen. Mean sac diameter measures 1.5 cm suggesting gestational age 6 weeks 3 days. MATERNAL ADNEXA: The right maternal ovary measures 2.9 x 1.9 x 2.5 cm. The left maternal ovary measures 3.1 x 2.1 x 2.2 cm. There is no significant maternal adnexal mass. No maternal pelvic ascites. US/US OB transvaginal IMPRESSION: Intrauterine gestational sac and yolk sac. No pole seen. Mean sac diameter suggests gestational age 6 weeks 3 days.
== END 2022-07-02 10:56 | disposition home or self-care (01) ==
LOC: HO.HMGCX 10:55
PROVIDERS: PCP Family Medicine; Visit Provider Advanced Practice Midwife
DX: Z34.91 Encounter for supervision of normal pregnancy, unspecified, first trimester (principal); Z3A.01 Less than 8 weeks gestation of pregnancy
CPT/HCPCS: 76801; 76817

== ENCOUNTER 2022-10-26 11:03 | Emergency (ER) | payer MEDICAID, SELFPAY ==
--- NOTE | ~2022-10-26 | XR_ITS ---
EXAMINATION: XR CHEST CLINICAL INFORMATION: Pain COMPARISON: X-ray 03/10/2018 TECHNIQUE: 2 views of the chest were obtained. FINDINGS: The cardiomediastinal silhouette is within normal limits. The lungs are well expanded. There is no focal consolidation, edema, or effusion. No pneumothorax. No acute osseous abnormality. XR/XR chest 2V IMPRESSION: No evidence of acute pulmonary process.
--- NOTE | 2022-10-26 11:06 | ECG_ITS ---
Test Reason : cp Blood Pressure : / mmHG Vent. Rate : 099 BPM Atrial Rate : 099 BPM P-R Int : 134 ms QRS Dur : 082 ms QT Int : 328 ms P-R-T Axes : 023 031 025 degrees QTc Int : 420 ms Normal sinus rhythm Normal ECG When compared with ECG of 08-OCT-2021 16:37, No significant change was found Referred By: Generic ED Physician Electronically Signed By:Alexei Reyes
[2022-10-26 11:49] VITALS: BP 121/67; PULSE 100; RESP 16; TEMP 36.3; O2SAT 99; BMI 25.2
--- NOTE | 2022-10-26 11:51 | ED_ITS ---
HPI - Chest Pain General Chief Complaint: General Medical Stated Complaint: chest pain Time Seen by Provider: 10/26/22 15:03 Source: patient Mode of arrival: ambulatory Limitations: no limitations History of Present Illness HPI narrative: 21-year-old female presents with chest pain. Chest pain has been going on for approximately 20 years. She has had it intermittently. The pain is described as sharp and achy. There is no clear relieving or exacerbating features. It is not associated with exertion. Patient presents today predominantly because the symptoms have been getting progressively worse and more severe more frequent. It is not associated with nausea vomiting. Symptoms can be associated with guru rtness of breath. She has no history of coronary artery disease. No family history of sudden cardiac . She denies history of PE or DVT. No family history of blood clots. She is approximately 5 months . She is on a vitamin. 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 Her is otherwise going unremarkable. Related Data Previous Rx's Medication Instructions Recorded ibuprofen 600 mg tablet 600 mg PO Q8H PRN pain #14 tabs 01/27/22 famotidine 20 mg tablet 20 mg PO BID #30 tabs 10/26/22 Allergies Allergy/AdvReac Type Severity Reaction Status Date / Time No Known Allergies Allergy Verified 01/27/22 15:42 Review of Systems Review of Systems: CONSTITUTIONAL: Denies weight loss, fever and chills. HEENT: Denies changes in vision and hearing. RESPIRATORY: Denies SOB and cough. CV: Denies palpitations positive CP. GI: Denies abdominal pain, nausea, vomiting and diarrhea. : Denies dysuria and urinary frequency. MSK: Denies myalgia and joint pain. SKIN: Denies rash and pruritus. NEUROLOGICAL: Denies headache and syncope. PSYCHIATRIC: Denies recent changes in mood. Denies anxiety and depression. All other ROS are negative unless in HPI Physical Exam Vital Signs: Vital Signs: Last Vital Signs Temp 97.3 F 10/26/22 11:49 Pulse 100 10/26/22 11:49 Resp 16 10/26/22 11:49 BP 121/67 10/26/22 11:49 Pulse Ox 99 10/26/22 11:49 O2 Del Method Room Air 10/26/22 11:49 BMI result Body Mass Index 25.2 GEN: Well developed, no acute distress, alert, oriented HEENT: Normocephalic, atraumatic, normal external ears, nose appears normal, no oropharyngeal edema or exudates Eyes: Normal to appearance Neck: Supple, no lymphadenopathy Respiratory: Talks in complete sentences, no respiratory distress, clear to auscultation bilaterally Cardiovascular: Regular rate and rhythm, no murmurs rubs or gallops Abdomen: Soft, nontender, nondistended, no guarding, no rebound Back: No CVA tenderness Extremities: No clubbing cyanosis or edema Neurologic: No focal neurologic deficits, cranial nerves 2-12 intact, strength is 5/5 bilaterally Skin: No rash Course Course Course Narrative: Rapid medical exam prior to evaluation in the department for full physical and evaluation Patient complains of frequent episodes of chest pain associated with some anxiety, she is , no bleeding or pelvic pain, no shortness of breath no leg pain Chest x-ray EKG and basic labs are ordered, full evaluation to be done in department Reevaluation(s) Reevaluation #1: Patient's exam and workup were complete. Her lungs are clear to auscultation bilateral. Chest x-ray shows no acute cardiopulmonary disease. She has no lower extremity edema. Doubt PE. EKG is nonischemic appearing. Doubt acute co ronary syndrome or angina. Her exam also does not reproduce the pain so I doubt musculoskeletal pain. Less likely this could be esophageal specially given her status. Will try famotidine and recommend follow-up with her OBGYN. Time: 15:15 Medical Decision Making Medical Decision Making [facility] Narrative: 21-year-old female presents with chest pain. Examination is unremarkable with exception of a gravid abdomen. Her lungs are clear to auscultation bilaterally in cardiac exam is regular rate and rhythm without murmurs rubs or gallops. EKG done in triage shows no acute ischemia. I will order chest x-ray. Will order routine laboratory testing to rule out possible etiologies such as anemia, electrolyte abnormality. Will re-evaluate the patient frequently. Patient could very easily reflux and would recommend starting an H2 todd. Differential Diagnosis Differential Diagnoses: The differential diagnosis associated with the presentation includes (Chest pain, atypical chest pain, cardiac chest pain, pneumonia, bronchitis, musculoskeletal pain, reflux, esophageal spasm) Atypical chest pain Admission/Observation Consideration of admission/observation: Escalation of care including admission/observation considered Lab Data [facility] Lab Attestation statement: I reviewed the patient's lab results. 10/26/22 12:01 10/26/22 12:01 Labs: Lab Results 10/26/22 10/26/22 10/26/22 Range/Units 12:01 12:01 12:01 WBC 9.0 (4.8-10.8) X10*3/uL RBC 3.32 L D (4.20-5.50) X10*6/uL Hgb 10.1 L (12.0-16.0) g/dl Hct 30.1 L (37.0-47.0) % MCV 90.7 (80.0-98.0) fL MCH 30.4 (27.0-33.0) pg MCHC 33.6 (31.0-35.0) g/dl RDW 13.5 (11.0-16.0) % Plt Count 148 L (160-400) X10*3/uL MPV 11.1 (9.4-12.3) fL Immature Gran % (Auto) Cancelled Neut % (Auto) Cancelled Lymph % (Auto) Cancelled [place] % (Auto) Cancelled Eos % (Auto) Cancelled Baso % (Auto) Cancelled Lymph # (Auto) Cancelled [place] # (Auto) Cancelled Eos # (Auto) Cancelled Baso # (Auto) Cancelled Abs Immat Gran (auto) Cancelled Absolute Neuts (auto) Cancelled Absolute Nucleated RBC 0.000 (0.0-0.012) X10*3/uL Nucleated RBC % (auto) 0.0 (0.0-0.2) /100WBC Neutrophils % (Manual) 69 (45-73) % Band Neutrophils % 3 (3-5) % Lymphocytes % (Manual) 22 (20-40) % Monocytes % (Manual) 4 (2-11) % Basophils % (Manual) 1 (0-2) % Metamyelocytes % 1 % Abs Neuts (Manual) 6.5 (2.0-8.3) X10*3/uL Lymphocytes # (Manual) 2.0 (1.2-4.9) X10*3/uL Monocytes # (Manual) 0.4 (0.1-1.2) X10*3/uL Basophils # (Manual) 0.1 (0.0-0.2) X10*3/uL Metamyelocytes # 0.1 X10*3/uL Platelet Estimate SLIGHTLY DECREASED (NORMAL) Plt Morphology Comment NORMAL RBC Morphology NORMAL PT 10.1 (10.0-13.1) SEC INR 0.9 (0.9-1.1) Sodium 140 (135-145) mmol/L Potassium 3.7 (3.3-5.1) mmol/L Chloride 107 (96-108) mmol/L Carbon Dioxide 24 (22-29) mmol/L Anion Gap 13 (12-20) BUN 13 (9-16) mg/dL Creatinine 0.56 (0.5-1.4) mg/dL Estim Creat Clear Calc 133.9 Estimated GFR > 60 Random Glucose 76 (60-115) mg/dL Calcium 10.0 D (8.4-10.2) mg/dL Independent Interpretation I performed an independent interpretation of an: EKG (Normal sinus rhythm heart rate 99, normal intervals, no acute ST elevations depressions) and Plain X-Ray (Chest: No acute cardiopulmonary disease) Prescription Management I considered prescription management with: Pain Medication Discharge Plan Discharge Clinical Impression: Atypical chest pain Patient Disposition: Home, Self-Care Instructions: Chest Pain (DC), Gastroesophageal Reflux Disease (ED) Prescriptions: New famotidine 20 mg tablet 20 mg PO BID Qty: 30 0RF No Action ibuprofen 600 mg tablet 600 mg PO Q8H PRN (Reason: pain) Qty: 14 0RF Referrals: Anna Medley DO [Primary Care Provider] - 1 week
[2022-10-26 12:08] LABS: Hematocrit 30.1 % (37.0-47.0); Hemoglobin 10.1 g/dl (12.0-16.0); Mean Corpuscular HGB Conc 33.6 g/dl (31.0-35.0); Mean Corpuscular Hemoglobin 30.4 pg (27.0-33.0); Mean Corpuscular Volume 90.7 fL (80.0-98.0); Platelet Count 148 X10*3/uL (160-400); Red Blood Count 3.32 X10*6/uL (4.20-5.50); Red Cell Distribution Width 13.5 % (11.0-16.0)
[2022-10-26 12:09] LABS: Mean Platelet Volume 11.1 fL (9.4-12.3)
[2022-10-26 12:13] LABS: INTERNATIONAL NORM RATIO 0.9 (0.9-1.1); Prothrombin Time 10.1 SEC (10.0-13.1)
[2022-10-26 12:31] LABS: Anion Gap 13 (12-20); Band Neutrophils Percent 3 % (3-5); Basophils Abs Manual 0.1 X10*3/uL (0.0-0.2); Basophils Percent Manual 1 % (0-2); Blood Urea Nitrogen 13 mg/dL (9-16); Carbon Dioxide 24 mmol/L (22-29); Chloride 107 mmol/L (96-108); Creatinine Clr Calc Pharmacy 133.9; Estimated Glomerular Filt Rate > 60; Glucose Random 76 mg/dL (60-115); Lymphocytes Percent Manual 22 % (20-40); Metamyelocytes Absolute 0.1 X10*3/uL; Metamyelocytes Percent 1 %; Monocytes Absolute Manual 0.4 X10*3/uL (0.1-1.2); Monocytes Percent Manual 4 % (2-11); Neutrophils Absolute Manual 6.5 X10*3/uL (2.0-8.3); Neutrophils Percent Manual 69 % (45-73); Potassium 3.7 mmol/L (3.3-5.1); Sodium 140 mmol/L (135-145)
[2022-10-26 12:33] LABS: Platelet Estimate SLIGHTLY DECREASED (NORMAL)
[2022-10-26 12:43] LABS: Platelet Morphology Comment NORMAL
[2022-10-26 12:44] LABS: RBC Morphology NORMAL
== END 2022-10-26 17:14 | disposition home or self-care (01) ==
PROVIDERS: Physician Assistant Medical; Emergency Provider Emergency Medicine; PCP Family Medicine
DX: O26.892 Other specified pregnancy related conditions, second trimester (principal); R07.89 Other chest pain; Z3A.21 21 weeks gestation of pregnancy
CPT/HCPCS: 36415; 71046; 80048; 85007; 85027; 85610; 93005; 99283